=== PATIENT | female | born 1965 | race American Indian/Alaskan Native ===

== ENCOUNTER 2017-01-05 16:12 | Emergency (ER) | payer BC, OTHER ==
[2017-01-05 16:32] VITALS: RESP 18; TEMP 99.3
[2017-01-05] MEDS ORDERED: Sodium Chloride 0.9% 1,000 ML IV STA (16:38)
--- NOTE | 2017-01-05 17:01 | ED PDOC ---
Arrival/HPI - General Historian: Patient - History of Present Illness Time/Duration: Prior to Arrival Symptom Onset: Sudden Symptom Course: Unchanged Quality: Aching Severity Level: 8 <Mauricio Hillman - Last Filed: 01/05/17 18:26> <Romain Jara DO - Last Filed: 01/05/17 19:19> - General Chief Complaint: Abdominal Pain Time Seen by Provider: 01/05/17 16:32 - History of Present Illness Narrative History of Present Illness (Text): 52 F with pmh of Hypertension, Hypercholesterolemia, hx UTI's, presents with abdominal and R flank pain. Pt states that he has been having dysurea, frequency and urgency for the past 2 days. She states that she has a history of multiple UTIs. Today she was in middle work when she got severe flank pain. On her way to the hospital she had 1 epsiode of nausea, and non bloody non bilious vomiting. She denies any fever, chills, shortness of breath, chest pain, palpitations or diarrhea. PMD: Dr Larose (Mauricio Hillman) Past Medical History - Provider Review Nursing Documentation Reviewed: Yes - Infectious Disease Hx of Infectious Diseases: None - Reproductive Menopause: Yes - Cardiac Hx Hypertension: Yes - Psychiatric Hx Substance Use: No - Surgical History Hx Orthopedic Surgery: Yes Other/Comment: hernia - Anesthesia Hx Anesthesia: No <Mauricio Hillman - Last Filed: 01/05/17 18:26> Family/Social History - Physician Review Nursing Documentation Reviewed: Yes Family/Social History: CVA/TIA (mother ), Diabetes (grand mother ) Smoking Status: Unknown If Ever Smoked Hx Alcohol Use: No Hx Substance Use: No <Mauricio Hillman - Last Filed: 01/05/17 18:26> Allergies/Home Meds <Mauricio Hillman - Last Filed: 01/05/17 18:26> <Romain Jara DO - Last Filed: 01/05/17 19:19> Allergies/Adverse Reactions: Allergies No Known Allergies Allergy (Verified 01/05/17 16:31) Review of Systems - Review of Systems Constitutional: absent: Fatigue, Fevers, Night Sweats Eyes: absent: Vision Changes ENT: absent: Hearing Changes Respiratory: absent: SOB, Cough, Sputum Cardiovascular: absent: Chest Pain, Palpitations Gastrointestinal: Abdominal Pain Genitourinary Female: Dysuria, Frequency. absent: Hematuria Musculoskeletal: absent: Arthralgias Skin: absent: Rash Neurological: absent: Headache, Dizziness Endocrine: absent: Diaphoresis Psychiatric: absent: Anxiety, Depression <Mauricio Hillman - Last Filed: 01/05/17 18:26> Physical Exam Temperature: Afebrile Blood Pressure: Hypertensive Pulse: Regular Respiratory Rate: Normal Appearance: Positive for: Well-Appearing, Non-Toxic, Comfortable Pain Distress: Moderate Mental Status: Positive for: Alert and Oriented X 3 - Systems Exam Head: Present: Atraumatic, Normocephalic Pupils: Present: PERRL Extroacular Muscles: Present: EOMI Conjunctiva: Present: Normal Mouth: Present: Moist Mucous Membranes Neck: Present: Normal Range of Motion Respiratory/Chest: Present: Clear to Auscultation, Good Air Exchange. No: Respiratory Distress, Accessory Muscle Use Cardiovascular: Present: Regular Rate and Rhythm, Normal S1, S2. No: Murmurs Abdomen: Present: Normal Bowel Sounds. No: Tenderness, Distention, Peritoneal Signs Upper Extremity: Present: Normal Inspection. No: Cyanosis, Edema Lower Extremity: Present: Normal Inspection. No: Edema Neurological: Present: GCS=15, CN II-XII Intact, Speech Normal Skin: Present: Warm, Dry, Normal Color. No: Rashes Psychiatric: Present: Alert, Oriented x 3, Normal Insight, Normal Concentration <Mauricio Hillman - Last Filed: 01/05/17 18:26> Medical Decision Making <Mauricio Hillman - Last Filed: 01/05/17 18:26> <Romain Jara DO - Last Filed: 01/05/17 19:19> ED Course and Treatment: Impression: 52 F with pmh of Hypertension, Hypercholesterolemia, hx UTI's, presents with abdominal and R flank pain. Differential Diagnosis included but are not limited to: UTI vs Pyelo vs unlikely nephrolithiasis Plan: - CBC, CMP, Lipase - Urinalysis - Pain control with Toradol - Pepcid and Zofran - CT abd pelvis w/o contrast - Reassess and disposition Prior Visits: None Progress Notes: 01/05/17 18:19 CT abd pelvis shows a 2mm distal R ureteral calculus with prox mild hydroureteralnephrosis. Small R perinephric fluid. Hepatomegally. Possible hepatic steatosis. 01/05/17 18:23 Pt hemodynamically stable. Pain improved. (Mauricio Hillman) Patient Seen With Resident: In agreement with resident note. Patient was seen and evaluated with resident, came up with plan and treatment together. Patient aware of CT findings and will follow up with her PMD in 2-3 days. Patient understands plan. (Romain Jara DO) - Lab Interpretations Lab Results: 01/05/17 16:44 01/05/17 16:44 Lab Results 01/05/17 16:44: Sodium 141, Potassium 3.6, Chloride 100, Carbon Dioxide 28, Anion Gap 17, BUN 11, Creatinine 0.9, Est GFR ( Amer) > 60, Est GFR (Non- Af Amer) > 60, Random Glucose 152 H, Calcium 9.6, Total Bilirubin 0.8, AST 65 H , ALT 107 H, Alkaline Phosphatase 88, Total Protein 9.3 H, Albumin 4.9 H, Globulin 4.5, Albumin/Globulin Ratio 1.1, Lipase 57 01/05/17 16:44: Urine Color Straw, Urine Appearance Clear, Urine pH 7.0, Ur Specific Worth 1.020, Urine Protein Negative, Urine Glucose (UA) Negative, Urine Ketones Negative, Urine Blood Small H, Urine Nitrate Negative, Urine Bilirubin Negative, Urine Urobilinogen 0.2, Ur Leukocyte Esterase Negative, Urine RBC 2 - 5, Urine WBC 0 - 2, Ur Epithelial Cells 0 - 2, Urine Bacteria Trace 01/05/17 16:44: WBC 9.7, RBC 4.40, Hgb 12.9, Hct 38.8, MCV 88.2, MCH 29.3, MCHC 33.2, RDW 13.3, Plt Count 221, MPV 11.6 H, Gran % 74.5 H, Lymph % (Auto) 19.1 L , Clinch % (Auto) 4.5, Eos % (Auto) 1.5, Baso % (Auto) 0.4, Gran # 7.22 H, Lymph # 1.9, Clinch # 0.4, Eos # 0.2, Baso # 0.04 - RAD Interpretation Radiology Orders: 01/05/17 16:52 ABD & PELVIS W/O PO OR IV CONT [CT] Stat - Medication Orders Current Medication Orders: Discontinued Medications Famotidine (Pepcid) 20 mg IVP STAT STA Stop: 01/05/17 16:39 Last Admin: 01/05/17 17:00 Dose: 20 mg Sodium Chloride (Sodium Chloride 0.9%) 1,000 mls @ 100 mls/hr IV .Q10H STA Stop: 01/06/17 02:37 Last Admin: 01/05/17 17:00 Dose: 100 mls/hr Ketorolac Tromethamine (Toradol) 30 mg IVP STAT STA Stop: 01/05/17 16:52 Last Admin: 01/05/17 17:00 Dose: 30 mg Ondansetron HCl (Zofran Inj) 4 mg IVP STAT STA Stop: 01/05/17 16:39 Last Admin: 01/05/17 16:59 Dose: 4 mg - 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 GIANFRANCO has examined the patient and agrees with the treatment plan. <Mauricio Hillman - Last Filed: 01/05/17 18:26> Disposition/Present on Arrival - Present on Arrival Any Indicators Present on Arrival: No History of DVT/PE: No History of Uncontrolled Diabetes: No Urinary Catheter: No History of Decub. Ulcer: No History Surgical Site Infection Following: None - Disposition Have Diagnosis and Disposition been Completed?: Yes Disposition Time: 18:22 Patient Plan: Discharge <Mauricio Hillman - Last Filed: 01/05/17 18:26> - Disposition Disposition Time: 18:10 Patient Plan: Discharge <Romain Jara DO - Last Filed: 01/05/17 19:19> - Disposition Diagnosis: Nephrolithiasis Disposition: HOME/ ROUTINE Condition: GOOD Discharge Instructions (ExitCare): Kidney Stones (ED), How to Strain Your Urine (ED) Additional Instructions: Thank you for letting us take care of you today. Your provider was Dr. Jara. You were treated for a kidney stone. The emergency medical care you received today was directed at your acute symptoms. If you were prescribed any medication, please fill it and take as directed. It may take several days for your symptoms to resolve. Return to the Emergency Department if your symptoms worsen, do not improve, or if you have any other problems. Please contact your doctor or call one of the physicians/clinics you have been referred to that are listed on the Patient Visit Information form that is included in your discharge packet. Bring any paperwork you were given at discharge with you along with any medications you are taking to your follow up visit. Our treatment cannot replace ongoing medical care by a primary care provider (PCP) outside of the emergency department. Thank you for allowing the [facility] team to be part of your care today. Take Motrin for mild/moderate pain. You can take the oxycodone for severe pain. Follow up with your doctor in 2-3 days for re-evaluation. Prescriptions: oxyCODONE [oxyCODONE Immediate Release Tab] 5 mg PO Q6 PRN #10 tab PRN Reason: Pain, Severe (8-10) Referrals: Gabbi Larose DO [Primary Care Provider] - Follow up with primary Forms: WORK NOTE
[2017-01-05 17:05] LABS: ADD MANUAL DIFF? NO
[2017-01-05 17:20] LABS: BASO # 0.04 K/mm3 (0.0-2.0); BASO % 0.4 % (0.0-3.0); EOS # 0.2 (0.0-0.7); EOS % 1.5 % (1.5-5.0); GRAN # 7.22 (1.4-6.5); GRAN % 74.5 % (50.0-68.0); HEMATOCRIT 38.8 % (36.0-48.0); LYMPH # 1.9 (1.2-3.4); LYMPH % 19.1 % (22.0-35.0); MEAN CELL VOLUME 88.2 fL (80.0-105.0); MEAN CORPUSCULAR HEMOGLOBIN 29.3 pg (25.0-35.0); MEAN CORPUSCULAR HGB CONC 33.2 g/dl (31.0-37.0); MEAN PLATELET VOLUME 11.6 fl (7.0-11.0); MONO # 0.4 (0.1-0.6); MONO % 4.5 % (1.0-6.0); PLATELET COUNT 221 10^3/uL (120.0-450.0); RED CELL DISTRIBUTION WIDTH 13.3 % (11.5-14.5); WHITE BLOOD COUNT 9.7 10^3/ul (4.5-11.0)
[2017-01-05 17:24] LABS: ALB/GLOB RATIO 1.1 (1.1-1.8); ALKALINE PHOSPHATASE 88 U/L (38-133); ALT/SGPT 107 U/L (7-56); AST/SGOT 65 U/L (15-39); BILIRUBIN,TOTAL 0.8 mg/dL (0.2-1.3); BLOOD UREA NITROGEN 11 mg/dL (7-21); CALCIUM 9.6 mg/dL (8.4-10.5); CARBON DIOXIDE 28 mmol/L (21-33); CHLORIDE 100 mmol/L (98-107); GFR AFRICAN-AMERICAN > 60; GLUCOSE,RANDOM 152 mg/dL (70-110); POTASSIUM 3.6 mmol/L (3.6-5.0); SODIUM 141 mmol/L (132-148); TOTAL PROTEIN 9.3 g/dL (5.8-8.3)
[2017-01-05 17:26] LABS: LIPASE 57 U/L (23-300)
[2017-01-05 17:29] LABS: URINE BILIRUBIN NEGATIVE (NEGATIVE); URINE BLOOD SMALL (NEGATIVE); URINE GLUCOSE (UA) NEGATIVE (NEGATIVE); URINE KETONE NEGATIVE (NEGATIVE); URINE LEUKOCYTE ESTERASE NEGATIVE Leu/uL (NEGATIVE); URINE PROTEIN NEGATIVE mg/dL (<30 mg/dL); URINE UROBILINOGEN 0.2 E.U./dL (<1 E.U./dL)
[2017-01-05 17:30] LABS: URINE APPEARANCE CLEAR (CLEAR); URINE COLOR STRAW (YELLOW)
[2017-01-05 17:44] VITALS: O2SAT 98
[2017-01-05 17:45] LABS: URINE BACTERIA TRACE (NEG); URINE EPITHELIAL CELLS 0 - 2 /hpf (0-5); URINE WBC 0 - 2 /hpf (0-6)
--- NOTE | 2017-01-05 18:16 | CT ---
PROCEDURE: CT Abdomen and Pelvis without Oral or IV contrast. HISTORY: right flank pain COMPARISON: None available TECHNIQUE: Contiguous axial images of the abdomen and pelvis. No oral or IV contrast administered. Coronal and Sagittal reformats generated. Radiation dose: Total exam DLP = 492.71 mGy-cm. This CT exam was performed using one or more of the following dose reduction techniques: Automated exposure control, adjustment of the mA and/or kV according to patient size, and/or use of iterative reconstruction technique. FINDINGS: There is limited evaluation of the solid organs without the administration of IV contrast. LOWER THORAX: No visible consolidation, pleural effusion, or pneumothorax. LIVER: Hepatomegaly. Hypoattenuation of the liver compatible with hepatic steatosis. GALLBLADDER AND BILE DUCTS: Unremarkable unenhanced appearance. PANCREAS: Unremarkable unenhanced appearance. SPLEEN: Unremarkable unenhanced appearance. ADRENALS: Unremarkable unenhanced appearance. KIDNEYS AND URETERS: 2 mm distal right ureteral calculus (series 2, image 141) with proximal mild hydroureteronephrosis. Small right perinephric fluid. The left kidney appears unremarkable without hydronephrosis or obstructing calculus. BLADDER: The urinary bladder appears unremarkable. REPRODUCTIVE: Uterus is present. APPENDIX: Limited visualized presumed appendix appears within normal limits of caliber. No secondary signs of acute appendicitis. BOWEL: The stomach is nondistended. Lack of oral contrast limits evaluation for bowel pathology. The bowel loops appear within normal limits of caliber without evidence of intestinal obstruction. PERITONEUM: No significant free fluid. No definite free air. LYMPH NODES: No bulky lymphadenopathy identified. VASCULATURE: No aortic aneurysm. BONES: No acute osseous abnormality is detected. OTHER FINDINGS: None. IMPRESSION: 2 mm distal right ureteral calculus with proximal mild hydroureteronephrosis. Small right perinephric fluid. Hepatomegaly. Hypoattenuation of the liver compatible with hepatic steatosis.
[2017-01-05 18:19] VITALS: BP 155/79; PULSE 67
== END 2017-01-05 18:54 | disposition home or self-care (01) ==
LOC: ED 16:12
DX: N20.0 Calculus of kidney (principal); I10 Essential (primary) hypertension; E78.00 Pure hypercholesterolemia, unspecified
CPT/HCPCS: 74176; 80053; 81001; 83690; 85025; 87086; 96374; 96375; 99285; J1885; J2405; J7040

== ENCOUNTER 2017-12-14 19:15 | Emergency (ER) | payer OTHER ==
[2017-12-14] MEDS ORDERED: Alum-Mag Hydrox-Simethicone Susp (30 mL) PO STA (19:27)
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
[2017-12-14 20:12] VITALS: RESP 18; O2SAT 99; BMI 31.2
[2017-12-14 22:25] VITALS: BP 125/67; PULSE 78; TEMP 97.7
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
== END 2017-12-14 22:25 | disposition home or self-care (01) ==
LOC: ED 19:15
DX: M54.6 Pain in thoracic spine (principal); V43.52XA Car driver injured in collision with other type car in traffic accident, initial encounter; Y92.410 Unspecified street and highway as the place of occurrence of the external cause

== ENCOUNTER 2018-06-18 19:03 | Emergency (ER) | payer OTHER ==
[2018-06-18 19:25] VITALS: BMI 31.8
[2018-06-18 20:54] VITALS: BP 147/84; PULSE 64; RESP 18; TEMP 97.8; O2SAT 99
--- NOTE | 2018-06-18 22:28 | ED PDOC ---
Arrival/HPI - General Chief Complaint: Upper Extremity Problem/Injury Time Seen by Provider: 06/18/18 20:46 Historian: Patient - History of Present Illness Narrative History of Present Illness (Text): 06/18/18 22:28 53yr old female presents today with worsening right wrist pain. pt states she has been going to physical therapy and has been having increasing pain in the right wrist for the past week or so. pt states today while in physicial therapy pt states the wrist was more swollen so they told her to have xrays. pt denies any recent trauma or injury. no medications have been taken for pain at home. pt denies numbness, weakness or tingling in the extremity. Past Medical History - Provider Review Nursing Documentation Reviewed: Yes - Travel History Have you recently traveled outside [place] w/in the past 3 mons?: No - Infectious Disease Hx of Infectious Diseases: None - Cardiac Hx Hypertension: Yes - Pulmonary Hx Respiratory Disorders: No - Neurological Hx Neurological Disorder: No - HEENT Hx HEENT Disorder: No - Renal Hx Renal Disorder: No - Endocrine/Metabolic Hx Endocrine Disorders: Yes Hx Diabetes Mellitus Type 2: Yes - Hematological/Oncological Hx Blood Disorders: No - Integumentary Hx Dermatological Disorder: No - Musculoskeletal/Rheumatological Hx Fractures: Yes (R wrist) - Gastrointestinal Hx Gastrointestinal Disorders: No - Genitourinary/Gynecological Hx Genitourinary Disorders: No - Psychiatric Hx Psychophysiologic Disorder: No Hx Substance Use: No - Surgical History Hx Orthopedic Surgery: Yes Other/Comment: hernia - Anesthesia Hx Anesthesia: No Family/Social History - Physician Review Nursing Documentation Reviewed: Yes Family/Social History: Unknown Family HX Smoking Status: Unknown If Ever Smoked Hx Alcohol Use: No Hx Substance Use: No Allergies/Home Meds Allergies/Adverse Reactions: Allergies diltiazem Adverse Reaction (Verified 06/18/18 19:26) ANGIOEDEMA lisinopril Adverse Reaction (Verified 06/18/18 19:26) ANGIOEDEMA fruit Allergy (Uncoded 06/18/18 19:26) ANAPHYLAXIS Home Medications: Home Meds Medication Instructions Recorded Confirmed Losartan [Cozaar] 25 mg PO DAILY 06/18/18 06/18/18 Review of Systems - Review of Systems Constitutional: absent: Fatigue Respiratory: absent: SOB, Cough Cardiovascular: absent: Chest Pain, Palpitations Gastrointestinal: absent: Abdominal Pain, Nausea, Vomiting Musculoskeletal: Arthralgias. absent: Back Pain, Neck Pain Skin: absent: Rash, Pruritis Psychiatric: absent: Anxiety, Depression Physical Exam Vital Signs Reviewed: Yes Vital Signs Temp Pulse Resp BP Pulse Ox 06/18/18 19:04 97.8 F 64 18 147/84 99 Temperature: Afebrile Blood Pressure: Normal Pulse: Regular Respiratory Rate: Normal Appearance: Positive for: Well-Appearing, Non-Toxic, Comfortable Pain Distress: None Mental Status: Positive for: Alert and Oriented X 3 - Systems Exam Head: Present: Atraumatic Neck: Present: Normal Range of Motion Respiratory/Chest: Present: Clear to Auscultation, Good Air Exchange. No: Respiratory Distress, Accessory Muscle Use Cardiovascular: Present: Regular Rate and Rhythm, Normal S1, S2. No: Murmurs Upper Extremity: Present: Normal Inspection, Normal ROM, NORMAL PULSES, Tenderness (right wrist; + ttp over dorsal aspect of wrist; full rom of wrist with pain; no erythema; no edema, no ecchymosis; sensation and distal pulses intact; no snuff box tenderness. ), Neurovascularly Intact, Capillary Refill < 2s. No: Swelling, Erythema, Deformity Neurological: Present: GCS=15 Skin: Present: Warm, Dry, Normal Color. No: Rashes Psychiatric: Present: Alert, Oriented x 3 Medical Decision Making ED Course and Treatment: 06/18/18 22:39 Patient nontoxic well-appearing in no distress with stable vital signs X-rays of the right wrist; no fracture motrin po Patient placed in velcro splint pt reassessment; pt feeling much better after medications; full rom of wrist. I discussed all results with patient advised to followup with the orthopedist for the next 2 days. Return if symptoms worsen persist or new symptoms develop Patient verbalizes understanding of discharge instructions and need for immediate followup. all aspects of this case were discussed the attending of record. Impression: wrist pain Motrin every 6 hours as needed for pain Use wrist splint Rest, ice, compression, elevation Followup with the orthopedist within the next 2 days Followup with primary care physician within the next 2 days Return if any other concerning symptoms develop - RAD Interpretation Radiology Orders: 06/18/18 20:46 WRIST, RIGHT 3 VIEWS [RAD] Stat - Medication Orders Current Medication Orders: Discontinued Medications Ibuprofen (Motrin Tab) 600 mg PO STAT STA Stop: 06/18/18 20:47 Last Admin: 06/18/18 21:03 Dose: 600 mg MAR Pain/Vitals Document 06/18/18 21:03 MICHAEL (Rec: 06/18/18 21:04 MICHAEL [id number]) Pain Reassessment Is This A Pain ReAssessment? No Sleep Is patient sleeping during reassessment? No Presence of Pain Presence of Pain Yes Pain Scale Used Protocol: PSCALES Pain Scale Used Numeric Location Left, Right or Bilateral Right Pain Location Body Site Wrist Description Intermittent Intensity 7 Scale Used Numeric Disposition/Present on Arrival - Present on Arrival Any Indicators Present on Arrival: No History of DVT/PE: No History of Uncontrolled Diabetes: No Urinary Catheter: No History of Decub. Ulcer: No History Surgical Site Infection Following: None - Disposition Have Diagnosis and Disposition been Completed?: Yes Diagnosis: Wrist pain Disposition: HOME/ ROUTINE Disposition Time: 22:00 Patient Plan: Discharge Condition: GOOD Additional Instructions: Motrin every 6 hours as needed for pain Use wrist splint Rest, ice, compression, elevation Followup with the orthopedist within the next 2 days Followup with primary care physician within the next 2 days Return if any other concerning symptoms develop Prescriptions: Ibuprofen [Motrin] 600 mg PO Q6H PRN #20 tab PRN Reason: pain/fever reduction Referrals: Tomre Rodriguez DO [Staff Provider] - Follow up with primary Pamela Pate MD [Medical Doctor] - Follow up with primary [facility] [Outside] - Follow up with primary [facility] [Outside] - Follow up with primary Forms: [employer] (Telugu), WORK NOTE
--- NOTE | 2018-06-19 10:10 | RAD ---
Date of service: 06/18/2018 PROCEDURE: Right Wrist Radiographs. HISTORY: wrist pain COMPARISON: None. FINDINGS: BONES: No acute fracture or destructive bony lesion identified. JOINTS: Normal. No dislocation. SOFT TISSUES: A triangular-shaped radiodensity seen in the proximal palm soft tissues representing either heterotopic calcification or possible retained radiodense foreign body. No emphysema soft tissue changes are identified. OTHER FINDINGS: None. IMPRESSION: No acute fracture or dislocation appreciated. Heterotopic calcification or possible retained radiodense foreign body seen the proximal palm soft tissues as discussed above. PA review assigned.
== END 2018-06-18 22:41 | disposition home or self-care (01) ==
LOC: ED 19:03
DX: M25.531 Pain in right wrist (principal); E11.9 Type 2 diabetes mellitus without complications; I10 Essential (primary) hypertension